=== PATIENT | male | born 1950 | race Hispanic/Latino ===

== ENCOUNTER → 2018-04-19 | Outpatient (CLI) | payer OTHER | END | disposition home or self-care (01) | LOC: SHCH 13:15 | PROVIDERS: ATTEND Internal Medicine Cardiovascular Disease | DX: I10 Essential (primary) hypertension (principal) | CPT/HCPCS: 93306 ==

== ENCOUNTER → 2019-07-22 | Outpatient (CLI) | payer OTHER | END | disposition home or self-care (01) | LOC: SHCH 11:03 | PROVIDERS: ATTEND Internal Medicine Cardiovascular Disease | DX: I73.9 Peripheral vascular disease, unspecified (principal) | CPT/HCPCS: 93925 ==

== ENCOUNTER → 2020-02-23 | Outpatient (CLI) | payer OTHER | END | disposition home or self-care (01) | LOC: RAH 12:41 | PROVIDERS: ATTEND Internal Medicine Cardiovascular Disease | DX: Z13.6 Encounter for screening for cardiovascular disorders (principal) | CPT/HCPCS: 75571 ==

== ENCOUNTER → 2020-03-08 | Outpatient (CLI) | payer OTHER ==
[~2020-03-08] VITALS: Ht 180.3 cm; Wt 115.7 kg
[~2020-03-08] MED LIST: REGADENOSON 0.4 MG/5 ML PF SYG IVP SCH
== END | disposition home or self-care (01) ==
LOC: SHCH 08:37
PROVIDERS: ATTEND Internal Medicine Cardiovascular Disease
DX: R07.9 Chest pain, unspecified (principal)
CPT/HCPCS: 78452; 93017; 96374; A9500 ×2; J2785

== ENCOUNTER 2020-05-05 06:08 | Day surgery (SDC) | payer OTHER ==
[2020-05-03 15:03] LABS: APPEARANCE,URINE Clear (CLEAR); BILIRUBIN,URINE Negative (NEGATIVE); COLOR,URINE Yellow (YELLOW); GLUCOSE, URINE (UA) TRACE mg/dL (NEGATIVE); KETONES,URINE Negative (NEGATIVE); LEUKOCYTE ESTERASE ,URINE Negative (NEGATIVE); NITRATE,URINE Negative (NEGATIVE); OCCULT BLOOD,URINE Negative (NEGATIVE); PROTEIN,URINE Negative (NEGATIVE)
[2020-05-03 15:07] LABS: BASOPHILS % (AUTO) 0.3 % (0.0-5.0); EOSINOPHILS % (AUTO) 2.8 % (0.0-8.0); HEMATOCRIT 40.8 % (42-54); LYMPHOCYTES % (AUTO) 28.2 % (21.0-51.0); MEAN CORPUSCULAR HEMOGLOBIN 30.6 pg (27.0-33.0); MEAN CORPUSCULAR HGB CONC 32.4 g/dL (32.0-36.0); MEAN CORPUSCULAR VOLUME 94.7 fL (79-99); MONOCYTES % (AUTO) 7.9 % (3.0-13.0); NEUTROPHILS % (AUTO) 60.6 % (40.0-77.0); PLATELET COUNT (AUTO) 236 K/uL (130-400); RED BLOOD CELL COUNT(AUTO) 4.31 MIL/uL (4.50-6.20); RED CELL DISTRIBUTION WIDTH 12.7 % (11.0-15.5)
[2020-05-03 15:16] LABS: RBC,URINE 0-1 /HPF (0-1)
[2020-05-03 15:18] LABS: BACTERIA,URINE Rare /HPF (None Seen); SQUAMOUS EPITHELIAL CELL,UR Few /HPF (0-2)
[2020-05-03 15:19] LABS: MUCUS,URINE Rare LPF (None Seen)
[2020-05-03 15:24] LABS: POTASSIUM 4.4 mmol/L (3.5-5.1)
[2020-05-03 16:20] LABS: INR 0.94 (0.85-1.15); PARTIAL THROMBOPLASTIN TIME 25.1 SEC (26.3-35.5); PROTHROMBIN TIME 10.2 SEC (9.6-11.6)
[2020-05-04 15:56] VITALS: BP 133/74
[~2020-05-05] VITALS: Ht 177.8 cm; Wt 115.0 kg
[2020-05-05] VITALS (11 sets, daily range): BP systolic 107–136; BP diastolic 59–89
[~2020-05-05 06:08] MED LIST changes: +AEC81 PO; +AMLO-258 PO; +ASCO500C18 PO; +CARV12.511 PO; +CHOL200013 PO; +INSU300I SQ; +ISOS10TA8 PO; +LISI-613 PO; +METF-446 PO; +NITR0.4T50 SL; -REGADENOSON 0.4 MG/5 ML PF SYG IVP SCH; +SIMV-43 PO; +TAMS-1 PO
[2020-05-05] MEDS ORDERED: SODIUM CHLORIDE 0.9% 1000ML 1,000 ML IV ONE (06:15)
--- NOTE | 2020-05-05 06:30 | NUR ---
PREOP PT ARRIVED AMBULATORY IN NO DISTRESS. PT ORIENTED TO ROOM AND CALL LIGHT. PT HERE FOR [facility] WITH THORACIC ANGIO. WILL CONTINUE TO MONITOR PT
--- NOTE | 2020-05-05 07:10 | NUR ---
REPORT CAEPA WITH DR STREET AND REPORTED THAT PT TOOK METFORMIN LAST NIGHT AT 2300. WILL STILL PROCEED. CEILING INSTALLER ROOPA KIMBROUGH ALSO MADE AWARE
[2020-05-05] MEDS ORDERED: IOHEXOL-350 50ML VIAL IV ONE ×2 (07:16→07:33)
[2020-05-05] MEDS ORDERED: LIDOCAINE HCL 2% 20ML ONE (07:16)
[2020-05-05] MEDS ORDERED: IOHEXOL 350 MG/ML 100ML INFUS..BTL IV ONE (07:16)
[2020-05-05] MEDS ORDERED: HEPARIN SODIUM 1000UNIT/ML 10ML VIAL ONE (07:16)
[2020-05-05] MEDS ORDERED: [UNRECOGNIZED DRUG - OTHER] SQ (07:18)
--- NOTE | 2020-05-05 07:27 | NUR ---
UNEMPLOYMENT INSPECTOR PT TAKEN TO UNEMPLOYMENT INSPECTOR VIA BED BY ROOPA KIMBROUGH AND MELISSA KIMBROUGH FROM UNEMPLOYMENT INSPECTOR
[2020-05-05] MEDS ORDERED: SODIUM CHLORIDE 0.9% 1000ML 1,000 ML IV SCH ×2 (08:00→08:30)
--- NOTE | 2020-05-05 08:55 | NUR ---
post cath received pt and report from gabriela romo from geochemical laboratory technician. pt in supine position in no distress. pt given call light.will continue to monitor pt
--- NOTE | 2020-05-05 14:45 | NUR ---
HANDOUT REPORT RECEIVED USING SBAR FROM ADITHYA GRIER RN AT PATIENT'S BEDSIDE. DRESSING TO PATIENT'S RIGHT GROIN IS DRY/INTACT. NO HEMATOMA, NO BLEEDING NOTED. RIGHT PEDAL PULSE STRONG.
--- NOTE | 2020-05-05 16:30 | NUR ---
PATIENT DISCHARGED FROM FACILITY VIA WHEELCHAIR BY NURSE. PATIENT ASSISTED INTO PRIVATE VEHICLE DRIVEN BY FAMILY.
== END 2020-05-05 16:30 | disposition home or self-care (01) ==
LOC: DAH 06:08
PROVIDERS: ATTEND Internal Medicine Cardiovascular Disease
DX: I25.119 Atherosclerotic heart disease of native coronary artery with unspecified angina pectoris (principal); I10 Essential (primary) hypertension; E11.9 Type 2 diabetes mellitus without complications; E86.0 Dehydration; E78.5 Hyperlipidemia, unspecified; Z90.49 Acquired absence of other specified parts of digestive tract; Z79.82 Long term (current) use of aspirin; Z79.84 Long term (current) use of oral hypoglycemic drugs; Z79.01 Long term (current) use of anticoagulants; Z79.899 Other long term (current) drug therapy
CPT/HCPCS: 36415; 71045; 80048; 81001; 82948 ×3; 85025; 85610; 85730; 93005; 93458; 96360; 96361; 99283; A4215; A4221; A4222; A4223; A4663; C1894; J1644 ×2; J3490; J7030 ×2; Q9965 ×2; Q9967 ×3; 93567

== ENCOUNTER → 2020-06-02 | Outpatient (CLI) | payer OTHER ==
[~2020-06-02] MED LIST changes: +IOHEXOL 350 MG/ML 100ML INFUS..BTL IV ONE; +[UNRECOGNIZED DRUG - OTHER] SQ
== END | disposition home or self-care (01) ==
LOC: RAH 07:41
PROVIDERS: ATTEND Internal Medicine Cardiovascular Disease
DX: I71.2 Thoracic aortic aneurysm, without rupture (principal); Q25.49 Other congenital malformations of aorta; R18.8 Other ascites; N28.1 Cyst of kidney, acquired
CPT/HCPCS: 71275; 74175; Q9967

== ENCOUNTER → 2021-05-05 | Outpatient (CLI) | payer OTHER ==
[~2021-05-05] MED LIST changes: -IOHEXOL 350 MG/ML 100ML INFUS..BTL IV ONE; -LISI-613 PO; +LISI20TA24 PO
== END | disposition home or self-care (01) ==
LOC: RAH 13:58
PROVIDERS: ATTEND Internal Medicine
DX: R19.09 Other intra-abdominal and pelvic swelling, mass and lump (principal); R10.32 Left lower quadrant pain
CPT/HCPCS: 76882

== ENCOUNTER → 2021-05-20 | Outpatient (CLI) | payer OTHER ==
[2021-05-20 12:09] LABS: INR 0.97 (0.85-1.15); PROTHROMBIN TIME 10.6 SEC (9.6-11.6)
[2021-05-20 12:11] LABS: PARTIAL THROMBOPLASTIN TIME 26.3 SEC (26.3-35.5)
== END | disposition home or self-care (01) ==
LOC: RAH 10:00
PROVIDERS: ATTEND Internal Medicine
DX: R59.0 Localized enlarged lymph nodes (principal); Z79.01 Long term (current) use of anticoagulants
CPT/HCPCS: 36415; 38505; 76942; 85610; 85730; 87070; 87076; 87101; 87206

== ENCOUNTER → 2021-07-07 | Outpatient (CLI) | payer OTHER ==
[~2021-07-07] MED LIST changes: +LIDOCAINE HCL 4% LTA SOL 4 ML VIAL TP ONE
== END | disposition home or self-care (01) ==
LOC: WHH 09:31
PROVIDERS: ATTEND Family Medicine
DX: I87.331 Chronic venous hypertension (idiopathic) with ulcer and inflammation of right lower extremity (principal); E11.622 Type 2 diabetes mellitus with other skin ulcer; I70.238 Atherosclerosis of native arteries of right leg with ulceration of other part of lower leg; L97.822 Non-pressure chronic ulcer of other part of left lower leg with fat layer exposed; I70.202 Unspecified atherosclerosis of native arteries of extremities, left leg; E11.22 Type 2 diabetes mellitus with diabetic chronic kidney disease; I13.0 Hypertensive heart and chronic kidney disease with heart failure and stage 1 through stage 4 chronic kidney disease, or unspecified chronic kidney disease; I50.22 Chronic systolic (congestive) heart failure; N18.30 Chronic kidney disease, stage 3 unspecified; E11.51 Type 2 diabetes mellitus with diabetic peripheral angiopathy without gangrene; I25.10 Atherosclerotic heart disease of native coronary artery without angina pectoris; E66.9 Obesity, unspecified; Z68.35 Body mass index [BMI] 35.0-35.9, adult; Z79.01 Long term (current) use of anticoagulants
CPT/HCPCS: 11042; A4450; A6021; A6197; A6456

== ENCOUNTER → 2021-07-25 | Outpatient (CLI) | payer OTHER | END | disposition home or self-care (01) | LOC: WHH 10:08 | PROVIDERS: ATTEND Family Medicine | DX: I87.331 Chronic venous hypertension (idiopathic) with ulcer and inflammation of right lower extremity (principal); E11.622 Type 2 diabetes mellitus with other skin ulcer; I70.238 Atherosclerosis of native arteries of right leg with ulceration of other part of lower leg; L97.822 Non-pressure chronic ulcer of other part of left lower leg with fat layer exposed; I70.202 Unspecified atherosclerosis of native arteries of extremities, left leg; E11.22 Type 2 diabetes mellitus with diabetic chronic kidney disease; I13.0 Hypertensive heart and chronic kidney disease with heart failure and stage 1 through stage 4 chronic kidney disease, or unspecified chronic kidney disease; I50.22 Chronic systolic (congestive) heart failure; N18.30 Chronic kidney disease, stage 3 unspecified; E11.51 Type 2 diabetes mellitus with diabetic peripheral angiopathy without gangrene; I25.10 Atherosclerotic heart disease of native coronary artery without angina pectoris; E66.9 Obesity, unspecified; Z68.35 Body mass index [BMI] 35.0-35.9, adult; Z79.01 Long term (current) use of anticoagulants | CPT/HCPCS: 11042; A6456 ==

== ENCOUNTER → 2021-12-09 | Outpatient (CLI) | payer OTHER ==
[~2021-12-09] MED LIST changes: -LIDOCAINE HCL 4% LTA SOL 4 ML VIAL TP ONE
== END ==
LOC: RAH 10:01
PROVIDERS: ATTEND Internal Medicine
DX: I73.9 Peripheral vascular disease, unspecified (principal); I70.8 Atherosclerosis of other arteries
CPT/HCPCS: 93926

== ENCOUNTER 2022-01-16 14:36 | Emergency (ER) | payer OTHER ==
[~2022-01-16] VITALS: Ht 180.3 cm; Wt 115.7 kg
[2022-01-16] MEDS ORDERED: FLUORESCEIN SODIUM 1 STRIP STRIP OP ONE (16:00)
[2022-01-16] MEDS ORDERED: TETRACAINE HCL 0.5% 4 ML OPHTH SOLN OS ONE (16:00)
[2022-01-16] MEDS ORDERED: ERYTHROMYCIN BASE 0.5% OPHTH OINT 1 GM TUBE ONE (17:19)
[2022-01-16] MEDS ORDERED: ERYTHROMYCIN BASE 0.5% OPHTH OINT 1 GM TUBE OU SCH (17:30)
[2022-01-16 17:40] VITALS: BP 127/71
== END 2022-01-16 17:40 | disposition home or self-care (01) ==
LOC: EDH 14:36
DX: H10.212 Acute toxic conjunctivitis, left eye (principal); E11.9 Type 2 diabetes mellitus without complications; E78.00 Pure hypercholesterolemia, unspecified; I10 Essential (primary) hypertension; Z79.899 Other long term (current) drug therapy; Z79.82 Long term (current) use of aspirin; Z79.4 Long term (current) use of insulin; Z79.84 Long term (current) use of oral hypoglycemic drugs; Z90.49 Acquired absence of other specified parts of digestive tract

== ENCOUNTER → 2023-05-24 | Outpatient (CLI) | payer OTHER ==
[~2023-05-24] MED LIST changes: +REGADENOSON 0.4 MG/5 ML PF SYG IVP SCH
== END | disposition home or self-care (01) ==
LOC: RAH 09:04
PROVIDERS: ATTEND Internal Medicine
DX: R07.89 Other chest pain (principal)
CPT/HCPCS: 78452; 96374; 93017; J2785; A9500 ×2

== ENCOUNTER → 2024-07-08 | Outpatient (CLI) | payer OTHER ==
[~2024-07-08] MED LIST changes: -REGADENOSON 0.4 MG/5 ML PF SYG IVP SCH
--- NOTE | 2024-07-08 16:00 | HMCIMG ---
CT ABD/PEL WO CON RENAL/APPY HISTORY: Hematuria COMPARISON: None TECHNIQUE: Multiple sequential axial images of the abdomen and pelvis were obtained from the dome of the diaphragm through symphysis pubis. Patient was not given contrast through intravenous route. Oral contrast was not given. FINDINGS: No pleural effusion is seen bilaterally. There is no evidence of parenchymal disease or pulmonary nodule of the visualized lower lungs. Degenerative changes of the thoracolumbar spine are present. The heart is not enlarged. Coronary arterial calcifications are seen. Liver is enlarged measuring 19.5 cm. Postcholecystectomy changes are seen. There is right renal cyst measuring 5.6 cm. There are bilateral renal vascular calcifications. Superimposed renal stone cannot be completely excluded. The liver, spleen, adrenal glands and pancreas are unremarkable. There is no evidence of hydronephrosis bilaterally. No evidence of renal stone is seen. Fecal material is seen in the colon. There are normal size retroperitoneal and mesenteric lymph nodes. No ascites is seen. Atherosclerotic changes are present. Pelvic sidewalls are symmetric bilaterally. Bladder is poorly distended. IMPRESSION: 1. Bilateral perinephric fat stranding. Extensive bilateral renal vascular calcifications. Superimposed renal stones cannot excluded. No hydronephrosis is seen. Right renal cyst measuring 5.8 cm. If needed, urinalysis correlation may be helpful. CT was performed with one or more following dose reduction techniques: automated exposure control, adjustment of the mA and kv according to patient's size, or use of a iterative reconstruction technique.
== END | disposition home or self-care (01) ==
LOC: RAH 14:01
PROVIDERS: ATTEND Internal Medicine
DX: N20.0 Calculus of kidney (principal); N28.1 Cyst of kidney, acquired; R31.9 Hematuria, unspecified; R16.0 Hepatomegaly, not elsewhere classified; I25.10 Atherosclerotic heart disease of native coronary artery without angina pectoris; M47.815 Spondylosis without myelopathy or radiculopathy, thoracolumbar region; I70.90 Unspecified atherosclerosis; Z90.49 Acquired absence of other specified parts of digestive tract
CPT/HCPCS: 74176

== ENCOUNTER 2025-02-15 14:24 | Emergency (ER) | payer OTHER ==
[~2025-02-15] VITALS: Ht 180.3 cm; Wt 108.0 kg
[~2025-02-15 14:24] MED LIST changes: -ISOS10TA8 PO; +ISOS10TA96 PO; -TAMS-1 PO; +TAMS-55 PO
--- NOTE | 2025-02-15 14:45 | ERN ---
ED Note History of Present Illness Stated Complaint: SOB/ CHILLS Chief Complaint: Shortness of Breath Time Seen by MD: 14:29 Dictation: PATIENT IS A 74-YEAR-OLD MALE COMING IN TODAY WITH COMPLAINTS OF FLU-LIKE SYMPTOMS TO INCLUDE FEVER CHILLS SHORTNESS BREATH WITH DRY COUGH AND BODY ACHES. NO NAUSEA VOMITING NO DIARRHEA T-MAX IS 101.4. STATES IT STARTED APPROXIMATE 2 HOURS AGO WHEN HE WAS INSIDE HIS HOME, WENT OUTSIDE TO CHECK ON THE WASHING MACHINE FOR A FEW MINUTES AND THEN WHEN HE STEPPED BACK THEN HE STARTED HAVING THE CHILLS. NO NAUSEA NO VOMITING NO DIARRHEA. HE HAS A DIABETIC, LAST BLOOD SUGAR 171 Allergies: Coded Allergies: No Known Drug Allergies (Unverified Allergy, Unknown, 03/05/20) Home Meds Reported Medications [bydureon insulin] No Conflict Check, SQ weekly 05/05/20 Insulin Glargine,Hum.rec.anlog (Terry Hatch) 300 Unit/1 Ml Insuln.pen, 80 UNIT SQ AD, SYRINGE 05/04/20 Nitroglycerin (Nitroglycerin) 0.4 Mg Tab.subl, 0.4 MG SL AD PRN for angina, TAB.SL 05/04/20 Amlodipine Besylate (Amlodipine Besylate) 10 Mg Tablet, 10 MG PO AM, TAB 05/04/20 Aspirin (ASPIRIN 81 MG ECTAB) 81 Mg Ectab, 81 MG PO AM, TAB.EC 05/04/20 Ascorbic Acid (Vitamin C) 500 Mg Capsule, 500 MG PO AM, CAP 05/04/20 Cholecalciferol (Vitamin D3) (Vitamin D3) 50 Mcg Capsule, 50 MCG PO AM, CAP 05/04/20 Lisinopril (Lisinopril) 20 Mg Tablet, 20 MG PO AM, TAB 05/04/20 Tamsulosin HCl (Flomax) 0.4 Mg Cap.er.24h, 0.4 MG PO HS, CAPSULE. 05/04/20 Isosorbide Mononitrate (Isosorbide Mononitrate) 10 Mg Tablet, 15 MG PO AM, TAB 05/04/20 Carvedilol (Carvedilol) 12.5 Mg Tablet, 12.5 MG PO BID, TAB 05/04/20 Simvastatin (Simvastatin) 20 Mg Tablet, 20 MG PO HS, TAB 05/04/20 Metformin HCl (Metformin HCl) 1,000 Mg Tablet, 1000 MG PO BID, TAB 05/04/20 Past Medical History Past Medical History: CAD, Diabetes-Type II, High Cholesterol, Heart Disease, Prostatitis Surgical History: Cholecystectomy RN Note Reviewed/Agreed w/PFSH: Yes Review of System Dictation CONSTITUTIONAL: NEGATIVE EXCEPT FOR HPI FEVER CHILLS HEAD/FACE: NEGATIVE EXCEPT FOR HPI EENT: NEGATIVE EXCEPT FOR HPI SORE THROAT WITH RESPIRATORY: NEGATIVE EXCEPT FOR HPI CLEAR RHINITIS SHORTNESS A BREATH DRY COUGH GASTROINTESTINAL/ABDOMINAL: NEGATIVE EXCEPT FOR HPI GENITOURINARY: NEGATIVE EXCEPT FOR HPI MUSCULOSKELETAL: NEGATIVE EXCEPT FOR HPI INTEGUMENTARY: NEGATIVE EXCEPT FOR HPI NEUROLOGICAL/PSYCH: NEGATIVE EXCEPT FOR HPI HEMATOLOGIC/LYMPHATIC: NEGATIVE EXCEPT FOR HPI ALL SYSTEMS NEGATIVE, EXCEPT NOTED ABOVE. 13 POINT REVIEW OF SYSTEMS ASSESSED AND ALL NEGATIVE EXCEPT FOR ABOVE. Initial Vital Sign VS Vital Signs Date Time Temp Pulse Resp B/P (MAP) Pulse Ox O2 Delivery O2 Flow Rate FiO2 02/15/25 14:28 101.8 80 20 197/82 96 0 02/15/25 15:31 Room Air* 21 Physical Exam Dictation VITAL SIGNS REVIEWED GENERAL APPEARANCE: ALERT, ORIENTED X 3, MILD ACUTE DISTRESS, WELL DEVELOPED, NOURISHED. HEAD AND FACE: NON-TRAUMATIC. EYES: PERRL, PINK CONJUNCTIVAS, EYELID NO TRAUMA, ANTERIOR CHAMBER WITH ARCUS SENILIS. EARS: PINNAS INTACT AND NO SIGNS OF TRAUMA OR ERYTHEMA EAR CANALS CLEAR AND NO DISCHARGE TM NO ERYTHEMA NOSE: CLEAR DISCHARGE, NO BLEEDING. OROPHARYNX: MOUTH NORMAL, TONGUE PINK, PHARYNX CLEAR, MODERATE PHARYNGEAL ERYTHEMA, TONSILS NO EXUDATES, NO ABSCESSES NOTED, MUCOUS MEMBRANE MOIST NECK: SUPPLE, NON-TENDER, NO THYROMEGALY, NO MASSES, NO JVD, NO BRUITS BREAST:DEFERRED CHEST:NO TENDERNESS, NO CREPITUS, NO PARADOXICAL MOVEMENT, NO RETRACTIONS LUNGS:CLEAR, WELL-VENTILATED, SYMMETRIC, NO RALES, NO WHEEZING, NO RHONCHI, NO STRIDOR, GOOD BREATH SOUNDS BILATERALLY HEART: REGULAR RATE, REGULAR RHYTHM, NO MURMUR, NO GALLOPS VASCULAR: NO PERIPHERAL EDEMA, ABDOMEN: SOFT, POSITIVE BOWEL SOUNDS, NONDISTENDED, NO GUARDING, NONTENDER, NO REBOUND, NO MASSES NO HEPATOMEGALY, NO SPLENOMEGALY, NO STOLL'S SIGN, NO HERNIAS. RECTAL: DEFERRED GENITAL: DEFERRED NEUROLOGICAL: NORMAL SPEECH, MOTOR FUNCTION INTACT, SENSORY FUNCTION INTACT MUSCULOSKELETAL: NECK NONTENDER, FULL RANGE OF MOTION, BACK NONTENDER, FULL RANGE OF MOTION, EXTREMITIES: NONTENDER, FULL RANGE OF MOTION SKIN: COLOR PINK, DRY, NO TURGOR, NO RASH, NO LACERATIONS, NO ABRASIONS, NO CONTUSIONS. LYMPHATIC: DEFERRED Results (Laboratory/Radiology) Laboratory/Radiology Laboratory Tests Test 02/15/25 14:35 02/15/25 14:52 02/15/25 15:10 Influenza Type A Antigen Negative For Type A Influenza Type B Antigen Negative For Type B SARS-CoV-2 Antigen (Rapid) PRESUMPTIVE NEGATIVE Group A Streptococcus Rapid negative (NEGATIVE) White Blood Count 11.9 K/uL (4.8-10.8) H Red Blood Count 3.69 MIL/uL (4.50-6.20) L Hemoglobin 11.3 g/dL (14.0-18.0) L Hematocrit 35.6 % (42-54) L Mean Corpuscular Volume 96.5 fL (79-99) Mean Corpuscular Hemoglobin 30.6 pg (27.0-33.0) Mean Corpuscular Hemoglobin Concent 31.7 g/dL (32.0-36.0) L Red Cell Distribution Width 13.0 % (11.0-15.5) Platelet Count 272 K/uL (130-400) Mean Platelet Volume 9.1 fL (7.5-10.5) Immature Granulocyte % (Auto) 0.5 % (0-1) Neutrophils (%) (Auto) 86.8 % (40.0-77.0) H Lymphocytes (%) (Auto) 7.7 % (21.0-51.0) L Monocytes (%) (Auto) 4.1 % (3.0-13.0) Eosinophils (%) (Auto) 0.6 % (0.0-8.0) Basophils (%) (Auto) 0.3 % (0.0-5.0) Neutrophils # (Auto) 10.3 K/uL (1.8-7.7) H Lymphocytes # (Auto) 0.9 K/uL (1.0-4.8) L Monocytes # (Auto) 0.5 K/uL (0.1-1.0) Eosinophils # (Auto) 0.07 K/uL (0.00-0.70) Basophils # (Auto) 0.04 K/uL (0.00-0.20) Absolute Immature Granulocyte (auto 0.06 K/uL (0-1) Nucleated Red Blood Cells 0.0 % (0.0-0.19) White Cell Morphology Comment See comments Sodium Level 136 mmol/L (136-145) Potassium Level 5.5 mmol/L (3.5-5.1) H Chloride Level 104 mmol/L (101-111) Carbon Dioxide Level 28 mmol/L (21-32) Blood Urea Nitrogen 26 mg/dL (7-18) H Creatinine 1.3 mg/dL (0.5-1.3) Glomerular Filtration Rate Calc 58 mL/min (>90) Random Glucose 166 mg/dL (70-105) H Total Calcium 9.0 mg/dL (8.5-10.1) Urine Color COLORLESS (YELLOW) Urine Appearance CLEAR (CLEAR) Urine pH 6.0 (5.0-8.0) Urine Specific [place] 1.015 (1.001-1.031) Urine Protein NEGATIVE mg/dL (NEGATIVE) Urine Glucose (UA) >=1000 mg/dL (NEGATIVE) H Urine Ketones NEGATIVE mg/dL (NEGATIVE) Urine Occult Blood +- (TRACE) (NEGATIVE) H Urine Nitrate NEGATIVE (NEGATIVE) Urine Bilirubin NEGATIVE mg/dL (NEGATIVE) Urine Urobilinogen 0.2 mg/dL (0.2-1.0) Urine Leukocyte Esterase 75 [place]/uL (NEGATIVE) H Urine RBC 2-5 /HPF (0-1) H Urine WBC 26-50 /HPF (0-1) H Urine Squamous Epithelial Cells RARE /HPF (0-2) Urine Bacteria FEW /HPF (None Seen) [address] [address] IMAGING REPORT Signed PATIENT: RINA COLIN MR#: [id number] : 1950 SEX: M AGE: 74 LOCATION: [facility] ORDER 53 STATUS: REG ER REPORT#: [id number] SERVICE 53 REASON: SOB/CHEST PAIN ORDERING PHYSICIAN: RHEINER,TRACY P ATM MECHANIC PROCEDURE: CXR1VW - CHEST 1VW EXAM: CR Chest, 1 View. CLINICAL HISTORY: SOB/CHEST PAIN COMPARISON: 05/03/2020 FINDINGS: LUNGS: There is no mass, infiltrate, or acute pulmonary abnormality. PLEURAL SPACES: No pleural effusion or pneumothorax. MEDIASTINUM: Cardiac size and mediastinal contours within normal limits. BONES: No acute osseous abnormality. IMPRESSION: No acute cardiopulmonary pathology is evident. /[place] Labs Reviewed?: Yes ED Course ED Course Orders Procedure Category Date Status Time Covid19 (Sars Antigen LAB 02/15/25 Complete Rapid) 14:39 Influenza Type A & B, LAB 02/15/25 Complete Rapid 14:39 Rapid (Group A Strep) LAB 02/15/25 Complete 14:39 Rapid (Group A Strep) LAB 02/15/25 Logged 14:42 Covid19 (Sars Antigen LAB 02/15/25 Logged Rapid) 14:42 Cbc With Differential LAB 02/15/25 Complete 14:42 Urinalysis Profile LAB 02/15/25 Complete 14:42 Basic Metabolic Panel LAB 02/15/25 Complete 14:42 Acetaminophen 500mg PHA 02/15/25 Complete Tab (Tylenol 500mg T 15:00 Chest 1vw RAD 02/15/25 Resulted 14:54 Culture Urine YANET 02/15/25 In Process 15:27 Albuterol 0.083% PHA 02/15/25 Complete 2.5mg/3ml (Proventil 16:30 Azithromycin PHA 02/15/25 Complete (Zithromax) 16:30 Current Medications Medications (Trade) Dose Ordered Sig/Rene Route PRN Reason Start Time Stop Time Status Last Admin Dose Admin Acetaminophen (TYLenol 500MG TAB) 1,000 mg ONCE ONCE PO 02/15/25 15:00 02/15/25 15:01 DC 02/15/25 15:08 Albuterol Sulfate (Proventil 0.083% 2.5mg/3ml) 2.5MG ONCE ONCE IH 02/15/25 16:30 02/15/25 16:31 DC 02/15/25 17:04 Azithromycin (Zithromax) 500 mg ONCE ONCE PO 02/15/25 16:30 02/15/25 16:31 DC 02/15/25 16:36 Vital Signs Date Time Temp Pulse Resp B/P (MAP) Pulse Ox O2 Delivery O2 Flow Rate FiO2 02/15/25 17:17 99.0 63 18 120/75 96 Room Air* 0 02/15/25 17:05 67 18 02/15/25 15:31 100.2 77 16 134/61 98 Room Air* 0 21 02/15/25 15:08 101.8 02/15/25 14:28 101.8 80 20 197/82 96 0 1730/PATIENT IS SATURATING 98 99% ON ROOM AIR. STAGE FEVER FEELS BETTER AFTER TREATMENT. SHE WILL BE DISCHARGED HOME WITH THE AZITHROMYCIN/ALBUTEROL INHALER TOLD TO FOLLOW UP WITH HIS DOCTOR IN THE NEXT 1-2 DAYS. WAS ALSO GIVEN INSTRUCTIONS ON INHALER USE WITH THE SON AT THE BEDSIDE. ALL QUESTIONS ANSWERED. Medical Decision Making MDM MDM: DIFFERENTIAL DIAGNOSIS: PNEUMONIA/BRONCHITIS/SARS COVID/INFLUENZA/HYPOXEMIA/ELECTROLYTE IMBALANCE RATIONALE: TESTS CONSIDERED AND ORDERED SECONDARY TO SHARED DECISION MAKING INCLUDE: LABS/CHEST X-RAY PREVIOUS OUTSIDE RECORDS REVIEWED: OLD ER VISITS. RISK OF COMPLICATION AND/OR MORBIDITY OR MORTALITY OF PATIENT MANAGEMENT: NONE MEDICATIONS-PER MEDICATION RECONCILIATION NEED FOR HOSPITALIZATION: PATIENT DOES NOT MEET CRITERIA FOR HOSPITALIZATION. NO, PATIENT REFUSES ADMISSION AT THIS TIME SAID HE WILL FOLLOW UP WITH HIS DOCTOR THE NEXT 1-2 DAYS. NEED FOR EMERGENCY MAJOR/MINOR SURGERY: NO THERE ARE NO SOCIAL CONCERNS WITH THIS PATIENT. PRESCRIPTION DRUG MANAGEMENT ALBUTEROL/AZITHROMYCIN 500 PRESCRIPTIONS WILL INCLUDE SYMPTOMATIC CARE PATIENT'S PRIOR EXTERNAL MEDICAL RECORDS FROM OTHER ER VISITS WERE REVIEWED BY ME INDICATED. PRIOR TESTING AND RESULTS FROM PREVIOUS VISITS WERE REVIEWED. PRIOR TESTS WERE TAKEN INTO ACCOUNT WITH MEDICAL DECISION MAKING AND RESOURCE UTILIZATION, INDEPENDENT HISTORIAN/HISTORIANS WERE USED TO OBTAIN COMPLETE MEDICAL HISTORY. I INDEPENDENTLY INTERPRETED THE TEST THAT WERE PERFORMED, RESULTS WERE REVIEWED BY ME AND CONSIDERED FINDINGS ON RADIOLOGY IF ORDERED. MEDICAL MANAGEMENT AND EXAMINATION INTERPRETATION DISCUSSIONS WERE HAD BY ME WITH OTHER QUALIFIED HEALTHCARE PROFESSIONALS INDICATED FOR THE PATIENT'S C ARE. DX & DISP Disposition: Transfer Departure Impression: Primary Impression: Acute bacterial bronchitis Additional Impressions: Stage 3 chronic kidney disease, Diabetes mellitus with hyperglycemia, Dyspnea on exertion Condition: Stable Scripts Albuterol Sulfate (Ventolin Hfa/Proventil Hfa/Proair Hfa) 90 Mcg Puff 2 PUFF IH Q4H for WHEEZING, #1 INHALER 0 Refills Prov: TRACY TEJADA NP 02/15/25 Azithromycin (Zithromax Tri-Steven) 500 Mg Tablet 500 MG PO DAILY for 7 Days, #7 TAB Prov: TRACY TEJADA ATM MECHANIC 02/15/25 Additional Instructions: FOLLOW-UP WITH PRIMARY CARE PROVIDER IN 1 TO 2 DAYS. TAKE MEDICATIONS DIRECTED HERE IN THE EMERGENCY ROOM. OKAY TO CONTINUE HOME MEDICATIONS UNLESS OTHERWISE DISCUSSED DURING YOUR VISIT IN THE EMERGENCY ROOM TODAY. RETURN TO YOUR NEAREST EMERGENCY ROOM IF SYMPTOMS WORSEN OR IF THERE IS NO IMPROVEMENT. CALL 911 IF YOU NEED IMMEDIATE ASSISTANCE. TAKE TYLENOL OR MOTRIN [id number] NEEDED AND IF NO CONTRAINDICATIONS ARE PRESENT. INCREASE ORAL HYDRATION. A WOUND CULTURE OR URINE CULTURE WAS ORDERED HERE IN THE EMERG ENCY ROOM DEPARTMENT PLEASE FOLLOW-UP WITH PRIMARY CARE PROVIDER AND ADVISE THEM TO GET REPEAT PORTS FROM OUR FACILITY. IF YOU HAD ANY CHRISTEL WRAP/SPLINTS THAT WERE APPLIED HERE, PLEASE DO NOT REMOVE THEM UNTIL YOU SEE YOUR PRIMARY CARE OR SPECIALTY. TAKE ANTIBIOTICS DIRECTED UNTIL GONE. USE ALBUTEROL INHALER EVERY 4 HOURS WHILE AWAKE FOR THE NEXT TWO DAYS. SEE YOUR PRIMARY CARE DOCTOR FOR FOLLOW UP AND MANAGEMENT. SUGGEST NEBULIZER FOR HOME USE Referrals: BRENDEN KENNEDY MD (PCP) Time of Disposition: 17:31 I have reviewed the case, and I agree with, Diagnosis and Plan TRACY TEJADA NP Feb 15, 2025 14:45
[2025-02-15 15:02] LABS: COVID19 (SARS ANTIGEN RAPID) PRESUMPTIVE NEGATIVE (NEGATIVE)
[2025-02-15 15:06] LABS: RAPID GROUP A STREP negative (NEGATIVE)
[2025-02-15 15:07] LABS: CREATININE 1.3 mg/dL (0.5-1.3); GLOMERULAR FILTR. RATE CALC 58.0 mL/min (>90); GLUCOSE,RANDOM 166.0 mg/dL (70-105); SODIUM SERUM 136.0 mmol/L (136-145); UREA NITROGEN, BLOOD 26.0 mg/dL (7-18)
[2025-02-15 15:08] LABS: IMMATURE GRANULOCYTE ABSOLUTE 0.06 K/uL (0-1); NUCLEATED RED BLOOD CELLS 0.0 % (0.0-0.19); PLATELET COUNT (AUTO) 272 K/uL (130-400); RED BLOOD CELL COUNT(AUTO) 3.69 MIL/uL (4.50-6.20); RED CELL DISTRIBUTION WIDTH 13.0 % (11.0-15.5); WHITE BLOOD COUNT (AUTO) 11.9 K/uL (4.8-10.8)
[2025-02-15 15:19] LABS: INFLUENZA TYPE A Negative For Type A (NEGATIVE); INFLUENZA TYPE B Negative For Type B (NEGATIVE)
[2025-02-15 15:25] LABS: APPEARANCE,URINE CLEAR (CLEAR); GLUCOSE, URINE (UA) >=1000 mg/dL (NEGATIVE); LEUKOCYTE ESTERASE ,URINE 75 Leu/uL (NEGATIVE); NITRATE,URINE NEGATIVE (NEGATIVE); OCCULT BLOOD,URINE +- (TRACE) (NEGATIVE)
[2025-02-15 15:26] LABS: ADD UA MICROSCOPIC YES
[2025-02-15 15:28] LABS: SQUAMOUS EPITHELIAL CELL,UR RARE /HPF (0-2)
[2025-02-15 15:40] VITALS: TEMP 100.2
--- NOTE | 2025-02-15 15:55 | HMCIMG ---
EXAM: CR Chest, 1 View. CLINICAL HISTORY: SOB/CHEST PAIN COMPARISON: 05/03/2020 FINDINGS: LUNGS: There is no mass, infiltrate, or acute pulmonary abnormality. PLEURAL SPACES: No pleural effusion or pneumothorax. MEDIASTINUM: Cardiac size and mediastinal contours within normal limits. BONES: No acute osseous abnormality. IMPRESSION: No acute cardiopulmonary pathology is evident. /[place]
[2025-02-15] MEDS: AZITHROMYCIN 250 MG TABLET PO ONE (16:36)
[2025-02-15] MEDS: ALBUTEROL 0.083% 2.5 MG/3 ML INH IH ONE (17:04)
[2025-02-15 17:05] VITALS: PULSE 67; RESP 18
[2025-02-15 17:17] VITALS: BP 120/75; PULSE 63; RESP 18; TEMP 98.9; O2SAT 96
[2025-02-15] MEDS ORDERED: ALBUHFA IH (17:32)
[2025-02-15] MEDS ORDERED: AZIT500T2 PO (17:32)
== END 2025-02-15 18:45 | disposition home or self-care (01) ==
LOC: EDH 14:24
DX: J20.8 Acute bronchitis due to other specified organisms (principal); E11.22 Type 2 diabetes mellitus with diabetic chronic kidney disease; I12.9 Hypertensive chronic kidney disease with stage 1 through stage 4 chronic kidney disease, or unspecified chronic kidney disease; N18.30 Chronic kidney disease, stage 3 unspecified; E11.65 Type 2 diabetes mellitus with hyperglycemia; I25.10 Atherosclerotic heart disease of native coronary artery without angina pectoris; E78.00 Pure hypercholesterolemia, unspecified; B96.89 Other specified bacterial agents as the cause of diseases classified elsewhere; Z79.84 Long term (current) use of oral hypoglycemic drugs; Z79.899 Other long term (current) drug therapy; Z90.49 Acquired absence of other specified parts of digestive tract; Z20.822 Contact with and (suspected) exposure to COVID-19
CPT/HCPCS: 36415; 71045; 80048; 81001; 85025; 87086; 87186; 87426; 87804; 87880; 94640; 99284

== ENCOUNTER → 2025-05-21 | Outpatient (CLI) | payer OTHER ==
[~2025-05-21] MED LIST changes: +ALBUHFA IH; +AZIT500T2 PO; +IOHEXOL 350 MG/ML 100ML INFUS..BTL IV ONE
--- NOTE | 2025-05-25 06:00 | CARDIOLOGY ---
RAD REPORT: [facility] CT ANGIO RADIOLOGY REPORT: CORONARY CT ANGIOGRAPHY DATE: May 25, 2025 QUALITY: Excellent CLINICAL HISTORY AND INDICATION: [ CAD] TECHNIQUE: After obtaining a preliminary physical therapy instructor image, contrast imaging performed on an Aquillon [id number] scanner. A dedicated, limited window, coronary imaging protocol was used, with single breath-hold, retrospective ECG gating, and automated arrhythmia rejection. 100 cc of low osmolar contrast agent: Omnipaque 350 was delivered via a 18-gauge IV catheter in the right antecubital fossa, using a power injector and followed by 60 cc of normal saline bolus as a chaser. Collimated images were reformatted at 0.5 mm intervals, and sent to an offline independent workstation for interpretation, using 3D anatomic reconstructions: Curved multiplanar reconstructions, maximum intensity projections, and multiplanar imaging. No metoprolol was administered prior to scanning due to low baseline heart rate. 0.8 mg SL nitroglycerin was given. CORONARY ARTERY DESCRIPTIONS: The coronary arteries arise in normal position. Left main coronary artery: Normal caliber vessel that bifurcates into the LAD and LCx. No stenosis. Left anterior descending coronary artery: Normal caliber vessel and gives rise to diagonal and septal branches. Aneuyrsal. There is mixed calcified and noncalcified plaque in the proximal LAD with 70-80% stenosis. here is mixed calcified and noncalcified plaque in the distal LAD with 70-80% stenosis. However, due to motion artifact lesion stenosis may be overestimated. Left circumflex coronary artery: Normal caliber, nondominant and gives rise to a large OM branch. There is mixed calcified and noncalcified plaque in the proximal LCx with 70-80% stenosis. However, due to motion artifact lesion stenosis may be overestimated. Right coronary artery: Large, dominant vessel that is aneurysmal giving rise to the PL and PDA branches. There is mixed calcified and noncalcified plaque in the proximal RCA with 70-80% stenosis. However, due to motion artifact lesion stenosis may be overestimated. CAD-RADs: 4B, multivessel obstructive CAD. However, due to motion artifact from abrupt rise in heart rate during contrast scan, luminal stenosis may be overestimated. Thoracic Aorta: Normal diameter. Tish Scott MD Cardiovascular Disease [facility] TISH SCOTT MD May 25, 2025 06:00
== END | disposition home or self-care (01) ==
LOC: RAH 07:59
PROVIDERS: ATTEND Internal Medicine Cardiovascular Disease
DX: I25.10 Atherosclerotic heart disease of native coronary artery without angina pectoris (principal)
CPT/HCPCS: 75574; Q9967

== ENCOUNTER 2025-06-09 07:06 | Day surgery (SDC) | payer OTHER ==
[2025-06-05 14:33] LABS: ADD UA MICROSCOPIC YES; APPEARANCE,URINE CLEAR (CLEAR); GLUCOSE, URINE (UA) >=1000 mg/dL (NEGATIVE); LEUKOCYTE ESTERASE ,URINE 250 Leu/uL (NEGATIVE); NITRATE,URINE NEGATIVE (NEGATIVE); OCCULT BLOOD,URINE NEGATIVE (NEGATIVE)
[2025-06-05 14:37] LABS: SQUAMOUS EPITHELIAL CELL,UR RARE /HPF (0-2)
[2025-06-05 14:44] LABS: IMMATURE GRANULOCYTE ABSOLUTE 0.03 K/uL (0-1); NUCLEATED RED BLOOD CELLS 0.0 % (0.0-0.19); PLATELET COUNT (AUTO) 176 K/uL (130-400); RED BLOOD CELL COUNT(AUTO) 4.32 MIL/uL (4.50-6.20); RED CELL DISTRIBUTION WIDTH 14.2 % (11.0-15.5); WHITE BLOOD COUNT (AUTO) 8.8 K/uL (4.8-10.8)
[2025-06-05 14:53] LABS: CREATININE 1.3 mg/dL (0.5-1.3); GLOMERULAR FILTR. RATE CALC 58.0 mL/min (>90); GLUCOSE,RANDOM 188.0 mg/dL (70-105); SODIUM SERUM 140.0 mmol/L (136-145); UREA NITROGEN, BLOOD 27.0 mg/dL (7-18)
[2025-06-05 14:56] LABS: INR 1.22 (0.85-1.15)
[2025-06-05 15:04] VITALS: BP 210/85; PULSE 72; RESP 18; TEMP 98.4
[2025-06-05 15:43] VITALS: BP 210/85; PULSE 72; RESP 18; TEMP 98.4
--- NOTE | 2025-06-05 17:37 | HMCIMG ---
EXAM: CR Chest ??? 1 View CLINICAL HISTORY: Pre-operative evaluation. COMPARISON: Previous chest radiograph dated 16 February 2025. TECHNIQUE: Single posteroanterior (PA) view of the chest was obtained. FINDINGS: Lungs: No mass, infiltrate, or acute pulmonary abnormality. Pleural Spaces: No pleural effusion or pneumothorax. Mediastinum / Heart: Cardiac size and mediastinal contours are within normal limits. Bones: No acute osseous abnormality. IMPRESSION: * No acute cardiopulmonary pathology. * No significant interval change or new finding compared to prior study dated 16 February 2025. /[place]
--- NOTE | 2025-06-05 17:41 | EKG ---
[facility] Test Date: 2025-06-05 Test Time: 14:27:46 Pat Name: RINA COLIN Department: [facility] Room: Gender: M Parts Salesman: [id number] : 1950 Requested By: MONTSRERAT JARVIS Order Number: [id number] Reading MD: Ryan Mei Measurements Intervals [place] Rate: 62 P: 66 NV: 454 QRS: -44 QRSD: 123 T: 88 QT: 466 QTc: 474 Interpretive Statements Sinus rhythm Prolonged NV interval RBBB and LAFB Compared to ECG 05/03/2020 13:56:04 Left anterior fascicular block now present Right bundle-branch block now present Left bundle-branch block no longer present Electronically Signed On 06-06-2025 15:12:38 CDT by Ryan Mei Please click the below link to view image of tracing.
--- NOTE | 2025-06-08 09:26 | NUR ---
REPORT REPORTED UA/URINE CX/BUN/CREAT TO DR MONTSERRAT JARVIS. OK TO PROCEED AND HE WILL PRETREAT IN AM.
[~2025-06-09] VITALS: Ht 180.3 cm; Wt 106.4 kg
[2025-06-09] VITALS (10 sets, daily range): BP systolic 150–175; BP diastolic 66–81; PULSE 49–59; RESP 8–18; TEMP 97–97.9
[~2025-06-09 07:06] MED LIST changes: -ALBUHFA IH; -AMLO-258 PO; -AZIT500T2 PO; -CARV12.511 PO; +EMPA25TA PO; +FERR-72 PO; +GLIP2.5T17 PO; -IOHEXOL 350 MG/ML 100ML INFUS..BTL IV ONE; -ISOS10TA96 PO; +ISOS30TA92 PO; -METF-446 PO; +MIEBO OU; +RIVA20TA PO; -[UNRECOGNIZED DRUG - OTHER] SQ
[2025-06-09] MEDS: 0.9%NACL 1000ML 1,000 ML IV SCH (09:15)
[2025-06-09] MEDS ORDERED: LIDOCAINE HCL 400MG/20ML VIAL ONE (12:17)
[2025-06-09] MEDS ORDERED: MIDAZOLAM HCL 1 MG/ML 2ML VIAL ONE ×2 (12:17→12:51)
[2025-06-09] MEDS ORDERED: IOHEXOL 350 MG/ML 100ML INFUS..BTL IV ONE (12:17)
[2025-06-09] MEDS ORDERED: VERAPAMIL HCL 2.5 MG/ML VIAL ONE (12:17)
[2025-06-09] MEDS ORDERED: NITROGLYCERIN 50MG VIAL ONE (12:18)
[2025-06-09] MEDS ORDERED: HEParin-NS 1,000 UNIT/500 ML 1,000 ML IV ONE (12:18)
[2025-06-09] MEDS ORDERED: ATROPINE 1MG SYG IVP ONE (12:39)
[2025-06-09] MEDS ORDERED: DEXTROSE 50%-WATER 50 ML DISP.SYRIN IV PRN (14:00)
[2025-06-09] MEDS ORDERED: 0.9%NACL 1000ML 1,000 ML IV SCH (14:00)
[2025-06-09] MEDS ORDERED: GLUCAGON 1MG KIT 1 MG ML IM PRN (14:00)
--- NOTE | 2025-06-09 14:12 | PRN ---
PROCEDURE REPORT DATE OF PROCEDURE: Jun 09, 2025 OPTICS TECHNICAL OFFICER: [Montserrat Scott MD ] PROCEDURE PERFORMED: Conscious sedation Ultrasound guided right radial artery access Selective left coronary artery angiogram Selective right coronary artery angiogram Left heart catheterization IFR hemodynamic assessment of the left circumflex TR band 13 omid over right radial artery INDICATION: Abnormal coronary CTA DESCRIPTION OF PROCEDURE: After informed consent was obtained, the patient was prepped and draped in the usual sterile fashion. A 6 Afghan arterial sheath was inserted in the right radial artery using ultrasound guidance with first pass wall puncture. The arterial sheath was aspirated and flushed. A 6 Afghan JL 3.5 was then advanced to the ascending aorta over an exchange length J-tip guidewire, was aspirated and flushed, and was used for selective coronary angiograms in multiple obliquities. A JR-4 was advanced in a similar fashion to the ascending aorta over the J-tipped guidewire and was used for selective right coronary angiograms in multiple oblique views with findings as outlined below. The JR-4 catheter advanced into the LV and pressures were obtained with a pull-back across the aortic valve. Following review of all the angiographic images there was a moderate hazy lesion in the ostial left circumflex with no significant guide catheter dampening. Given these findings decision was made to further interrogate this with hemodynamic assessment. We exchanged the diagnostic cat heter for a six Afghan XB three guide [place] [address] [place] heparin. We advanced an IFR wire into the proximal left circumflex and performed normalization with IV nitroglycerin prior to and flushing of the contrast solution. We ran IFR x2 revealing 0.99 with no drift upon pullback. Given these findings the decision was made to terminate the procedure. Repeat angiogram with no dissections or perforations. All wires and catheters removed from the body and A TR band was placed over right radial artery. Patient tolerated procedure well with no postprocedure complications transferred to medical lab specialist holding in stable condition FLUOROSCOPY TIME: 10 min LEFT HEART HEMODYNAMICS: LVEDP 11 mm Hg and no gradient Ao CORONARY ANGIOGRAM: LEFT MAIN: Patent and 0% stenosis. Gives rise to LCx and LAD. LEFT ANTERIOR DESCENDING: Large vessel giving rise to two Diagonal branches. Large and heavily/diffusely calcified with ectatic segments and proximal 30-40% stenosis becoming diffuse 20-30% stenosis in the mid to distal segments. Diagonal are patent with mild diffuse disease LEFT CIRCUMFLEX: Large and gives rise to two OM branches. Heavily calcified and ectatic with an ostial 50-60% hazy stenosis (IFR equals 0.99 x 2 with no drift). The distal left circumflex has a focal 60-70% stenosis and is a small vessel distally of approximately 1.5 mm. RIGHT CORONARY ARTERY: Large, Co dominant vessel giving rise to PDA and PL branches. Proximal 30-40% stenosis. Diffusely and heavily calcified with ectatic segments with diffuse 20-30% mid to distal stenosis. HEMOSTASIS: TR band 12 omid over right radial artery INTERVENTIONS: IFR of the left circumflex COMPLICATIONS: None FINDINGS: Normal coronary anatomy and mild non-obstructive CAD. ESTIMATED BLOOD LOSS: 5 cc RECOMMENDATIONS/INSTRUCTIONS: Aggressive risk factor modification. CONTRAST DELIVERED TO PATIENT (mL): 125cc MONTSERRAT Sethi MD, MD Jun 09, 2025 14:12
--- NOTE | 2025-06-09 14:23 | NUR ---
GLUCOSE: BLOOD SUGAR 66, INTAKE OF 240CC ORANGE JUICE. PT ASYMPTOMATIC
--- NOTE | 2025-06-09 14:37 | NUR ---
REPORT: HAND-OFF COMMUNICATION GIVEN TO JOELLEN CHURCH RN
== END 2025-06-09 18:17 | disposition home or self-care (01) ==
LOC: DAH 07:06
PROVIDERS: ATTEND Student in an Organized Health Care Education/Training Program
DX: R94.39 Abnormal result of other cardiovascular function study (principal); I25.118 Atherosclerotic heart disease of native coronary artery with other forms of angina pectoris; I10 Essential (primary) hypertension; I44.0 Atrioventricular block, first degree; I45.2 Bifascicular block; E78.00 Pure hypercholesterolemia, unspecified; Z90.49 Acquired absence of other specified parts of digestive tract; Z79.01 Long term (current) use of anticoagulants; Z79.899 Other long term (current) drug therapy
CPT/HCPCS: 80048; 83880; 85025; 85610; 85730; 87086 ×2; 87186; 81001; 36415; 71045; 93005; 93458; 93571; 99156; 99157 ×3; 82948 ×5; C1769 ×3; C1894; A4649; C1887; Q9965 ×2; J3010 ×2; J3490 ×3; J7030; J1644 ×3; J2250 ×2; Q9967; A4215; A4222; A4221; A4663; A4216; A4606; A4223 ×3; J0461